=== PATIENT | male | born 1990 | race Caucasian/White ===

== ENCOUNTER → 2020-10-04 | Day surgery (SDC) | payer BC ==
[2020-09-28 11:35] LABS: BASOPHILS % (AUTO) 0.6 % (0-1); EOSINOPHILS % (AUTO) 0.8 % (0-6); LYMPHOCYTES # (AUTO) 1.3 X10'3 (1.1-4.8); LYMPHOCYTES % (AUTO) 30.1 % (21-51); MEAN CORPUSCULAR HEMOGLOBIN 29.4 PG (27.0-31.0); MEAN CORPUSCULAR HGB CONC 34.4 g/dL (33.0-36.5); MEAN CORPUSCULAR VOLUME 85.7 FL (78-98); MEAN PLATELET VOLUME 8.5 FL (7.4-10.4); MONOCYTES # (AUTO) 0.3 X10'3 (0-0.9); MONOCYTES % (AUTO) 5.9 % (2-12); NEUTROPHILS # (AUTO) 2.8 X10'3 (1.8-7.7); NEUTROPHILS % (AUTO) 62.6 % (42-75); PRE OP HEMATOCRIT 47.1 % (42.0-52.0); PRE OP HEMOGLOBIN 16.2 g/dL (14.0-17.9); PRE OP PLATELET COUNT 171 X10'3 (140-440); RED BLOOD COUNT 5.49 X10'6 (4.70-6.10); RED CELL DISTRIBUTION WIDTH 12.8 % (11.5-14.5)
[2020-09-28 11:40] LABS: PRE OP INR 1.2 INR; PRE OP PROTIME 11.9 SECONDS (9.0-12.0)
[2020-09-28 11:49] LABS: ALBUMIN 4.5 G/DL (3.4-5.0); ALBUMIN/GLOBULIN RATIO 1.4 (1.1-1.5); ALKALINE PHOSPHATASE 68 IU/L (46-116); BLOOD UREA NITROGEN 13 MG/DL (7-18); BUN/CREATININE RATIO 9.5 (5.4-32.0); CHLORIDE 103 MMOL/L (99-107); CREATININE 1.37 MG/DL (0.60-1.10); PRE OP ALT 17 U/L (30-65); PRE OP ANION GAP 7 (8-16); PRE OP AST 13 U/L (10-37); PRE OP BILIRUB, TOTAL 1.3 MG/DL (0.0-1.0); PRE OP GLUCOSE 92 MG/DL (70-104); PRE OP POTASSIUM 4.5 MMOL/L (3.4-5.1); PRE OP SODIUM 140 MMOL/L (135-145); TOTAL CARBON DIOXIDE 29.9 MMOL/L (24-32); TOTAL PROTEIN 7.7 G/DL (6.4-8.2); eGFR 60 ML/MIN
[~2020-10-04] VITALS: Ht 182.9 cm; Wt 73.4 kg
[~2020-10-04] MED LIST: LIDOcaine 1% W/epiNEPHrine 1:100,000 20ml vial ONE; LIDOcaine 2% (20mg/ml) 5ml vial ONE; MUPI22OI30 TOP; ceFAZolin 1000mg inj ONE; cefTAZidime 1gm inj ONE; cocaine 4% topical solution 4ml bottle ONE; dexamethasone sod phosphate 4mg/ml inj. ONE; diazepam 5mg tablet PO ONE; famotidine 20mg tablet PO ONE; fentaNYL/PF 50MCG/1 ML 2ML syringe ONE; gelatin sponge, absorbable (Gelfoam 100) sponge TP ONE; meperidine/PF 25mg/ml syringe IV PRN; meperidine/PF 25mg/ml syringe ONE; methylPREDNISolone acetate 80mg/ml inj**IM only ONE; midazolam 1 mg/ML 2ml injection ONE; morphine 2 MG/ML inj. syringe IV PRN; morphine 4 MG/ML inj SYRINge IV PRN; mupirocin 2% ointment 22GM ONE; ondansetron/PF 4mg/2ml inj IV PRN; ondansetron/PF 4mg/2ml inj ONE; oxymetazoline 15 ML nasal spray NS ONE; proCHLORperazine 10 MG/2 ml inj IV PRN; propofol inj 20 ML IV ONE; ringers solution, lacted 1,000 ML IV SCH; salt irrigation nasal spray 45 ML SPRAY NS PRN
[2020-10-04 06:15] VITALS: BP 119/70
[2020-10-04 09:39] VITALS: BP 123/76
--- NOTE | 2020-10-04 09:39 | NUR ---
ASSUME CARE PT AROUSABLE TO NAME, VSS NO DISTRESS, NASAL SPONGE DRESSING TO BILAT NARES TAPED INATACT, PT DENIES PAIN STATES FEELS WEAK. IV TO RW 20 G INTACT. CONT TO MONITOR Addendum: 10/04/20 at 1013 by Tiffany Lim RN Amended: Links added.
[2020-10-04 09:49] VITALS: BP 130/87
[2020-10-04 09:59] VITALS: BP 120/80
--- NOTE | 2020-10-04 10:00 | NUR ---
BMP ORDER PER DR SPRAGUE, RESULTS CALLED BACK TO HIM, RANDI ELEVATED HE REQUEST COPY GIVEN TO PT OF LABS AND PT TO FOLLOW UP WITH PCP. INCLUDED IN DC INSTR. PT MORE AWAKE NO COMPLIANTS Addendum: 10/04/20 at 1036 by Tiffany Lim RN Amended: Links added.
[2020-10-04 10:09] VITALS: BP 130/78
[2020-10-04 10:19] VITALS: BP 130/87
[2020-10-04 10:23] LABS: ALBUMIN 3.9 G/DL (3.4-5.0); ANION GAP 8 (8-16); BLOOD UREA NITROGEN 13 MG/DL (7-18); BUN/CREATININE RATIO 9.8 (5.4-32.0); CALCIUM 8.4 MG/DL (8.5-10.1); CHLORIDE 106 MMOL/L (99-107); CREATININE 1.33 MG/DL (0.60-1.10); GLUCOSE 100 MG/DL (70-104); POTASSIUM 4.5 MMOL/L (3.5-5.1); SODIUM 142 MMOL/L (135-145); TOTAL CARBON DIOXIDE 27.8 MMOL/L (24-32); eGFR 62 ML/MIN
--- NOTE | 2020-10-04 10:36 | NUR ---
HOB ELEVATED PT AWAKE, STATES PAIN TO NOSE AND HEAD, NASAL SPONGE DRAIN REMOVED PER ORDER. Addendum: 10/04/20 at 1036 by Tiffany Lim RN Amended: Links added.
--- NOTE | 2020-10-04 10:50 | NUR ---
PT DENIES PAIN SIT UP ON SIDE OF BED VSS, NO DISTRESS MEETS CRITERIA TO GO HOME. DC INSTR GIVEN NO ?'S OR CONCERNS WAITING FOR RIDE. Addendum: 10/04/20 at 1113 by Tiffany Lim RN Amended: Links added.
== END | disposition home or self-care (01) ==
LOC: PAS 06:33
PROVIDERS: ATTEND Otolaryngology
DX: J34.2 Deviated nasal septum (principal); J34.3 Hypertrophy of nasal turbinates; J33.8 Other polyp of sinus; Z72.89 Other problems related to lifestyle; Z86.16 Personal history of COVID-19; Z79.01 Long term (current) use of anticoagulants; Z79.899 Other long term (current) drug therapy; Z20.822 Contact with and (suspected) exposure to COVID-19
CPT/HCPCS: 30140; 30520; 36415; 80048; 80053; 82948; 85025; 85576; 85610; 85730; A6402; C9250; J0690; J0713; J1040; J1100; J2001; J2175; J2250; J2405; J2704; J3010; J7040; J7120; U0003; U0005; A4618; A7000